=== PATIENT | male | born 1980 | race Caucasian/White ===

== ENCOUNTER 2016-11-18 14:56 | Emergency (ER) | payer SELFPAY ==
--- NOTE | 2016-11-18 15:56 | UC ---
Skin Complaint HPI - HPI Summary HPI Summary: The patient comes in today for: 1. Mass and pain on the back of the neck: Onset: 6-7 months ago--noticed suddenly when he tried to "crack" his neck. Palliative/provocative: turning the head to the right makes it worse. Quality: Ache Region: back of his neck just above the 7th cervical spinous process. Severity: 5-6/10 Time: Constant. Associated symptoms: Weakness/numbness of his arm: None. Previous treatment: Ibuprofen which has not helped. He took 400 mg every 4- 6 hours. He has taken 2 doses today. Previous evaluation: He was [place] [facility] [place] 3-4 months ago. Fevers: None. Weight loss: None. * - History of Current Complaint Chief Complaint: UCSkin Time Seen by Provider: 11/18/16 15:12 Stated Complaint: PAINFUL LUMP ON BACK OF NECK Hx Obtained From: Patient - Allergy/Home Medications Allergies/Adverse Reactions: Allergies Allergy/AdvReac Type Severity Reaction Status Date / Time Lactose AdvReac Severe Abdominal Verified 11/18/16 15:07 Pain Review of Systems Constitutional: Negative Skin: Negative Eyes: Negative ENT: Negative Respiratory: Negative Cardiovascular: Negative Gastrointestinal: Negative Genitourinary: Negative All Other Systems Reviewed And Are Negative: Yes PMH/Surg Hx/FS Hx/Imm Hx Previously Healthy: Yes Endocrine History Of: Denies: Diabetes, Thyroid Disease, Hyperthyroidism, Hypothyroidism, Dyslipidemia Cardiovascular History Of: Denies: Cardiac Disorders, Hypertension, Pacemaker/ICD, Myocardial Infarction , Congestive Heart Failure, Atrial Fibrillation, Deep Vein Thrombosis, Bleeding Disorders Respiratory History Of: Denies: COPD, Asthma, Bronchitis, Pneumonia, Pulmonary Embolism GI/ History Of: Reports: Kidney Stones Denies: Gastroesophageal Reflux, Ulcer, Gastrointestinal Bleed, Gall Bladder Disease, Diverticulitis, Renal Disease, Urosepsis Neurological History Of: Denies: TIA, CVA, Dementia, Seizures, Migraine Psychological History Of: Denies: Anxiety, Depression, Bipolar Disorder, Schizophrenia, Post Traumatic Stress Disorder Cancer History Of: Denies: Lung Cancer, Colorectal Cancer, Breast Cancer, Prostate Cancer, Cervical Cancer Other History Of: Negative For: HIV, Hepatitis B, Hepatitis C, Anticoagulant Therapy - Surgical History Surgical History: Yes Surgery Procedure, Year, and Place: right shoulder - Family History Known Family History: Positive: Hypertension, Diabetes - Social History Occupation: Employed Full-time Alcohol Use: Rare Substance Use Type: None Smoking Status (MU): Light Every Day Tobacco Smoker Type: Cigarettes Amount Used/How Often: 1/2 PPD Length of Time of Smoking/Using Tobacco: 15 years---but now only smokes 1-2 cigarettes daily Physical Exam Triage Information Reviewed: Yes Appearance: Well-Appearing, No Pain Distress - Just sitting, he did not seem to be in discomfort. However, there was discomfort with turning his chin toward the right shoulder., Thin Vital Signs: Initial Vital Signs Temp 98.2 F 11/18/16 15:04 Pulse 70 11/18/16 15:04 Resp 19 11/18/16 15:04 BP 109/75 11/18/16 15:04 Pulse Ox 100 11/18/16 15:04 Vital Signs Reviewed: Yes Eyes: Positive: Conjunctiva Clear, Discharge ENT: Positive: Hearing grossly normal. Negative: Pharyngeal erythema, Nasal congestion, Nasal drainage, TM bulging, TM dull, TM red, Tonsillar swelling, Tonsillar exudate Dental: Positive: Gross Decay/Caries @, Dental Fracture @ Neck: Positive: Supple, No Lymphadenopathy. Negative: Nontender - There was minimal tenderness to palpation of the 6th spinous process. There were no masses or enlarged lymph nodes. There was no mushiness to palpation of the spinous process., Nuchal Rigidity Respiratory: Positive: Chest non-tender, Lungs clear, No respiratory distress, No accessory muscle use. Negative: Rhonchi, Wheezing Cardiovascular: Positive: RRR, No Murmur Abdomen Description: Positive: Nontender, No Organomegaly, Soft. Negative: Distended, Guarding Musculoskeletal: Positive: Strength Intact, ROM Intact - His neck range of motion was slightly limited with rotation to the right. He was thin, but there were no fasciculations or muscular atrophy. DTR were 2+/2 x 2 for the biceps, triceps, and brachioradialis. Strength was normal and symmetrical. Neurological: Positive: Alert, Muscle Tone Normal Psychological: Positive: Age Appropriate Behavior, Consolable Skin: Negative: rashes, breakdown Diagnostics - Radiology No standard instances Xray Interpretation: No Acute Changes - Soft tissues: There are supraspinatus ligament calcification from C4 through C6, unchanged. IMPRESSION: NO ACUTE FINDINGS. NO EVIDENCE OF INSTABILITY. Course/Dx - Course Course Of Treatment: Patient told of his x-ray finding and his treatment options. He at this time only wants to go with Naproxen. 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 Discharge - Discharge Plan Condition: Stable Disposition: HOME Patient Education Materials: Neck Pain (ED) Referrals: No Primary Care Phys,NOPCP [Primary Care Provider] - 1 Week [facility] [place]Outside]
--- NOTE | 2016-11-18 16:46 | RAD ---
INDICATION: Atraumatic neck pain COMPARISON: CT cervical spine March 08, 2015 TECHNIQUE: Routine five-view imaging was performed additional flexion-extension views were acquired FINDINGS: Bones: There are no acute bony findings. There are no significant osteoarthritic findings. Craniocervical junction: The odontoid and atlantodental interval are normal. Alignment: Normal. There is no evidence of instability on flexion or extension. There is mild tilting of the head to the right Disc spaces: The disc spaces are well-maintained Soft tissues: There are supraspinatus ligament calcification from C4 through C6, unchanged. IMPRESSION: NO ACUTE FINDINGS. NO EVIDENCE OF INSTABILITY.
[2016-11-18 16:47] VITALS: BP 130/79
== END 2016-11-18 17:07 | disposition home or self-care (01) ==
LOC: UCEAST 14:56
DX: G89.29 Other chronic pain (principal); M75.80 Other shoulder lesions, unspecified shoulder; M75.30 Calcific tendinitis of unspecified shoulder; M54.2 Cervicalgia; E73.9 Lactose intolerance, unspecified; Z87.442 Personal history of urinary calculi; F17.210 Nicotine dependence, cigarettes, uncomplicated
CPT/HCPCS: 72052; 99212; G0463

== ENCOUNTER 2017-02-08 13:46 | Emergency (ER) | payer SELFPAY ==
[2017-02-08 14:39] VITALS: BP 97/66
--- NOTE | 2017-02-08 18:29 | UC ---
Zurdo Ventura Benjamin, scribed for Bong Powell MD on 02/08/17 at 1657 . Ear Complaint HPI - HPI Summary HPI Summary: 36yo male c/o pressure on his right ear that is also painful for about a week. Pt has been getting intermittent dizziness and off-balance in the last 3-4 days upcome standing up. Came to to rule out anything serious. Denies BARCENAS currently , but had headaches intermittently past week. No sinus pressure. Pt also reports neck stiffness. - History of Current Complaint Chief Complaint: UCEar Stated Complaint: EAR PAIN Time Seen by Provider: 02/08/17 16:48 Hx Obtained From: Patient Onset/Duration: Gradual Onset, Lasting Weeks - 1, Still Present Severity Initially: Mild Severity Currently: Mild Pain Scale Used: 0-10 Numeric Aggravating Factors: Nothing Alleviating Factors: Nothing - Allergies/Home Medications Allergies/Adverse Reactions: Allergies Allergy/AdvReac Type Severity Reaction Status Date / Time Lactose AdvReac Severe Abdominal Verified 11/18/16 15:07 Pain Home Medications: Home Medications DiMENhydriNATE TAB* [DraMAMine TAB*] 50 mg PO Q6H PRN 02/08/17 [History Confirmed 02/08/17] PMH/Surg Hx/FS Hx/Imm Hx Previously Healthy: No Other History Of: Negative For: HIV, Hepatitis B, Hepatitis C, Anticoagulant Therapy - Surgical History Surgical History: Yes Surgery Procedure, Year, and Place: right shoulder - Family History Known Family History: Positive: Unknown, Hypertension, Diabetes - Social History Occupation: Employed Full-time Lives: With Family Alcohol Use: None Substance Use Type: None Smoking Status (MU): Heavy Every Day Tobacco Smoker Type: Cigarettes Amount Used/How Often: 1/2 PPD Length of Time of Smoking/Using Tobacco: 15 years---but now only smokes 1-2 cigarettes daily Review of Systems Constitutional: Negative Skin: Negative Eyes: Negative ENT: Ear Ache - right Respiratory: Negative Cardiovascular: Negative Gastrointestinal: Negative Genitourinary: Negative Motor: Negative Neurovascular: Negative Musculoskeletal: Arthralgia - neck stiffness Neurological: Headache, Other - dizziness and off balance Psychological: Negative All Other Systems Reviewed And Are Negative: Yes Physical Exam Triage Information Reviewed: Yes Appearance: Well-Appearing, No Pain Distress, Well-Nourished Vital Signs: Initial Vital Signs Temp 99.5 F 02/08/17 14:36 Pulse 71 02/08/17 14:36 Resp 18 02/08/17 14:36 BP 97/66 02/08/17 14:36 Pulse Ox 100 02/08/17 14:36 Vital Signs Reviewed: Yes Eyes: Positive: Conjunctiva Clear, Other: - nystagmus ENT: Positive: Normal ENT inspection, TMs normal. Negative: Tonsillar swelling , Tonsillar exudate, Muffled/hoarse voice Neck: Positive: Supple Respiratory: Positive: Chest non-tender, Lungs clear, Normal breath sounds Cardiovascular: Positive: RRR, No Murmur Musculoskeletal: Positive: Strength Intact, ROM Intact Neurological: Positive: Alert, Muscle Tone Normal Psychological: Positive: Age Appropriate Behavior Skin: Negative: rashes Ear Complaint Course/Dx - Course Course Of Treatment: Reviewed medications list. NO NEUROLOGIC DEFICIT. POSITIVE NYSTAGMUS. NO EAR ABNORMALITY ON EXAM. DISCUSSED DX AND TREATMENT WITH THE PATIENT. RX MECLIZINE. TOLD PATIENT WILL GET REEVALUATED IF NOT IMPROVED OR WORSE. - Differential Dx/Diagnosis Provider Diagnoses: RIGHT EAR PAIN, VERTIGO. Discharge - Discharge Plan Condition: Stable Disposition: HOME Prescriptions: Meclizine HCl [Meclizine 25] 25 mg PO Q6H PRN #15 tab PRN Reason: Dizziness Patient Education Materials: Vertigo (ED), Earache (ED) Forms: *Work Release Referrals: [facility] Group] [facility] [place] [facility] REFERR[facility] [Outside] No Primary Care Phys,NOPCP [Primary Care Provider] - Additional Instructions: FOLLOW UP WITH YOUR DOCTOR. GO TO THE EMERGENCY DEPARTMENT FOR ANY WORSENING OF YOUR CONDITION OR QUESTIONS OR CONCERNS. The documentation as recorded by the Zurdo malik Benjamin accurately reflects the service I personally performed and the decisions made by me, Bong Powell MD.
== END 2017-02-08 17:18 | disposition home or self-care (01) ==
LOC: UCEAST 13:46
DX: H92.01 Otalgia, right ear (principal); R42 Dizziness and giddiness; Z91.011 Allergy to milk products; F17.210 Nicotine dependence, cigarettes, uncomplicated
CPT/HCPCS: 99212; G0463

== ENCOUNTER 2019-04-21 19:24 | Emergency (ER) | payer SELFPAY ==
[2019-04-21 19:37] VITALS: BP 130/77
--- NOTE | 2019-04-21 20:01 | UC ---
Throat Pain/Nasal Artemio HPI - HPI Summary HPI Summary: Patient is a 38yo male presenting with sore throat and nasal congestion x3 days. He notes ear pressure. Notes mild nonproductive cough. Denies SOB and wheezing. Denies n/v/d. Notes chills and fatigue. Denies fever. Denies taking any medication for symptomatic relief. Notes ill contacts and would like to be tested for strep. Admits to being a smoker and wanting to quit. Patient also adds that he has what feels like a gas bubble stuck in his stomach for months now but does not have pain with it. He was given pepcid for relief but it has not helped much. - History of Current Complaint Chief Complaint: UCGeneralIllness Stated Complaint: COLD SYMPTOMS Time Seen by Provider: 04/21/19 19:33 Hx Obtained From: Patient Onset/Duration: Gradual Onset, Lasting Days Severity: Moderate Pain Intensity: 6 Pain Scale Used: 0-10 Numeric Related History: Smoking - Allergies/Home Medications Allergies/Adverse Reactions: Allergies Allergy/AdvReac Type Severity Reaction Status Date / Time lactose Allergy Abdominal Verified 04/21/19 19:36 Pain Home Medications: Home Medications Ibuprofen TAB* [Motrin TAB* 400 MG] 400 mg PO Q6H PRN 04/21/19 [History Confirmed 04/21/19] Omeprazole CAP (NF) [Prilosec CAP* 20 MG] 20 mg PO BEDTIME 04/21/19 [History Confirmed 04/21/19] PMH/Surg Hx/FS Hx/Imm Hx Other History Of: Negative For: HIV, Hepatitis B, Hepatitis C, Anticoagulant Therapy - Surgical History Surgical History: Yes Surgery Procedure, Year, and Place: right shoulder - Family History Known Family History: Positive: Unknown, Hypertension, Diabetes, Non- Contributory - Social History Alcohol Use: None Substance Use Type: None Smoking Status (MU): Heavy Every Day Tobacco Smoker Type: eCigarettes Amount Used/How Often: 1 cartridge/3 days Length of Time of Smoking/Using Tobacco: 15 years---but now only smokes 1-2 cigarettes daily When Did the Patient Quit Smoking/Using Tobacco: , uses vapes now Review of Systems All Other Systems Reviewed And Are Negative: Yes Constitutional: Positive: Chills, Fatigue. Negative: Fever Eyes: Positive: Negative. Negative: Blurred Vision, Drainage, Eye Redness ENT: Positive: Sore Throat, Ear Ache, Sinus Congestion, Other - patient notes PND. Negative: Nasal Discharge, Sinus Pain/Tenderness Respiratory: Positive: Cough. Negative: Shortness Of Breath Cardiovascular: Positive: Negative. Negative: Palpitations, Chest Pain Gastrointestinal: Positive: Negative. Negative: Abdominal Pain, Vomiting, Diarrhea, Nausea Genitourinary: Positive: Negative Musculoskeletal: Positive: Myalgia Neurological: Negative: Headache Psychological: Positive: Negative Physical Exam Triage Information Reviewed: Yes Appearance: Well-Appearing, No Pain Distress, Well-Nourished Vital Signs: Initial Vital Signs Temp 97.7 F 04/21/19 19:30 Pulse 65 04/21/19 19:30 Resp 14 04/21/19 19:30 BP 130/77 04/21/19 19:30 Pulse Ox 100 04/21/19 19:30 Vital Signs Reviewed: Yes Eyes: Positive: Conjunctiva Clear. Negative: Discharge ENT: Positive: Hearing grossly normal, Pharyngeal erythema, Nasal congestion, TMs normal, Uvula midline. Negative: Nasal drainage, TM bulging, TM dull, TM red, Tonsillar swelling, Tonsillar exudate, Hoarse voice Neck exam: Normal Neck: Positive: Supple, Nontender, No Lymphadenopathy Respiratory Exam: Normal Respiratory: Positive: Lungs clear, Normal breath sounds, No respiratory distress Cardiovascular Exam: Normal Cardiovascular: Positive: RRR. Negative: Tachycardia Throat Pain/Nasal Course/Dx - Course Course Of Treatment: Discussed with patient his negative strep test and the likely viral etiology of upper respiratory symptoms. Patient instructed to continue to take OTC cough and cold medications for relief of cold symptoms. May take OTC analgesics as directed for pain relief. Directed to wash hands often, get plenty of rest and fluids, and return if symptoms worsen or do not resolve. Patient was also counseled on smoking cessation and given a physician referral for further evaluation by a PCP who can further aide him in smoking cessation. Patient was also instructed to address his gastric concerns with the PCP. Patient voiced understanding and agreed to treatment plan. - Differential Dx/Diagnosis Provider Diagnosis: Acute bronchitis Discharge ED - Sign-Out/Discharge Documenting (check all that apply): Patient Departure All imaging exams completed and their final reports reviewed: No Studies - Discharge Plan Condition: Stable Disposition: HOME Patient Education Materials: How to Stop Smoking (ED), Acute Bronchitis (ED) Forms: *Work Release Referrals: [facility] [place] [facility]ERR[facility] [Outside] - 1 Week [facility] [Outside] - 1 Week Additional Instructions: As discussed, your strep test was negative today and your symptoms are likely caused by a virus. You may take over the counter cough and cold medications for your cold symptoms. You may use nasal saline spray as directed for symptomatic relief. You may take ibuprofen as directed for pain relief. Get plenty of rest, fluids, and refrain from smoking. Return or follow up with your primary care doctor if your symptoms worsen or do not resolve. You may follow up with the [facility] or the Physician Referral for further evaluation and information on smoking cessation. - Billing Disposition and Condition Condition: STABLE Disposition: Home - Attestation Statements Provider Attestation: Per institutional requirements, I have reviewed the chart, however, I was not consulted specifically or made aware of this patient by the midlevel provider. I did not personally evaluate, interact with , or disposition this patient.
== END 2019-04-21 20:30 | disposition home or self-care (01) ==
LOC: UCEAST 19:24
DX: J20.9 Acute bronchitis, unspecified (principal); F17.290 Nicotine dependence, other tobacco product, uncomplicated
CPT/HCPCS: 87651; 99211; G0463

== ENCOUNTER 2019-06-09 09:31 | Emergency (ER) | payer SELFPAY ==
[2019-06-09 09:42] VITALS: BP 128/75
--- NOTE | 2019-06-09 10:14 | UC ---
Head Injury HPI - HPI Summary HPI Summary: 38-year-old male presents with complaints of headache and neck pain and stiffness after slipping on the ice this morning, falling backwards, and striking the back of his head. No loss of consciousness. States he immediately got up after the fall and was ambulatory. Reports a headache that has improved since the fall. States he is most concerned because he had a previous neck injury and his neck is sore and stiff. Denies dizziness, lightheadedness, visual disturbances, numbness, tingling, or weakness of the arms or legs, nausea, vomiting, or any other injury. - History Of Current Complaint Chief Complaint: UCHeadache Stated Complaint: HIT HEAD FOM FALLING Time Seen by Provider: 06/09/19 10:07 Hx Obtained From: Patient Pain Intensity: 7 - Allergies/Home Medications Allergies/Adverse Reactions: Allergies Allergy/AdvReac Type Severity Reaction Status Date / Time lactose Allergy Abdominal Verified 06/09/19 09:42 Pain PMH/Surg Hx/FS Hx/Imm Hx Previously Healthy: Yes - Denies significant PMH Other History Of: Negative For: HIV, Hepatitis B, Hepatitis C, Anticoagulant Therapy - Surgical History Surgical History: Yes Surgery Procedure, Year, and Place: right shoulder - Family History Known Family History: Positive: Hypertension, Diabetes - Social History Occupation: Employed Full-time Lives: With Family Alcohol Use: None Substance Use Type: None Smoking Status (MU): Heavy Every Day Tobacco Smoker Type: eCigarettes Amount Used/How Often: 1 cartridge/3 days Length of Time of Smoking/Using Tobacco: 15 years---but now only smokes 1-2 cigarettes daily When Did the Patient Quit Smoking/Using Tobacco: , uses vapes now Review of Systems All Other Systems Reviewed And Are Negative: Yes Constitutional: Positive: Negative Skin: Negative: Bruising Eyes: Negative: Blurred Vision, Diplopia, Photophobia Respiratory: Positive: Negative Cardiovascular: Positive: Negative Gastrointestinal: Negative: Vomiting, Nausea Genitourinary: Positive: Negative Musculoskeletal: Positive: Other: - See HPI Neurological: Positive: Headache. Negative: Weakness, Paresthesia, Numbness Is Patient Immunocompromised?: No Physical Exam - Summary Physical Exam Summary: GENERAL APPEARANCE: Well developed, well nourished, alert and cooperative, and appears to be in no acute distress. HEAD: Atraumatic. Normocephalic. EYES: Conjunctiva clear. No drainage. PERRL, EOM intact. Vision is grossly intact. EARS: External auditory canals and tympanic membranes clear, hearing grossly intact. NOSE: No nasal discharge. THROAT: Pharynx normal. No tonsilar inflammation, swelling, exudate, or lesions. Uvula midline. NECK: Neck supple, non-tender. Full ROM. CARDIAC: Normal S1 and S2. No S3, S4 or murmurs. Rhythm is regular. There is no peripheral edema, cyanosis or pallor. Extremities are warm and well perfused. Capillary refill is less than 2 seconds. Peripheral pulses intact. LUNGS: Clear to auscultation without rales, rhonchi, wheezing or diminished breath sounds. ABDOMEN: Positive bowel sounds. Soft, nondistended, nontender. No guarding or rebound. No masses or hepatosplenomegally. MUSKULOSKELETAL: ROM intact to all extremities. No joint erythema or tenderness. Normal muscular development. Normal gait. BACK: No spinal deformity or tenderness, decreased range of motion or muscular spasm. NEUROLOGICAL: CN II-XII intact. Strength and sensation symmetric and intact throughout. Reflexes 2+ throughout. Cerebellar testing normal. SKIN: Skin normal color, texture and turgor with no lesions or eruptions. Triage Information Reviewed: Yes Vital Signs: Initial Vital Signs Temp 99.4 F 06/09/19 09:39 Pulse 82 06/09/19 09:39 Resp 17 06/09/19 09:39 BP 128/75 06/09/19 09:39 Pulse Ox 99 06/09/19 09:39 Vital Signs Reviewed: Yes Head Injury Course/Dx - Course Course Of Treatment: 38-year-old male presents with complaints of headache and neck pain and stiffness after slipping on the ice this morning, falling backwards, and striking the back of his head. No loss of consciousness. States he immediately got up after the fall and was ambulatory. Reports a headache that has improved since the fall. States he is most concerned because he had a previous neck injury and his neck is sore and stiff. Denies dizziness, lightheadedness, visual disturbances, numbness, tingling, or weakness of the arms or legs, nausea, vomiting, or any other injury. - Differential Dx/Diagnosis Differential Diagnosis/HQI/PQRI: Cerebral Contusion, Concussion Without LOC, Intracranial Bleed, Skull Fracture Provider Diagnosis: Closed head injury without loss of consciousness, Cervical strain, acute Discharge ED - Sign-Out/Discharge Documenting (check all that apply): Patient Departure All imaging exams completed and their final reports reviewed: No Studies - Discharge Plan Condition: Stable Disposition: HOME Patient Education Materials: Head Injury (ED) Referrals: No Primary Care Phys,NOPCP [Primary Care Provider] - Additional Instructions: The X-ray performed in the clinic today showed no evidence of a fracture. Your history and exam are consistent with a closed head injury and cervical strain. Get plenty of rest especially if you are having symptoms. Take acetaminophen (Tylenol) or ibuprofen (Advil, Motrin) according directions as needed for headache or pain. Use a heating pad and to the back of her neck for 15-20 minutes at least 4 times a day to help with the pain and to relax the muscles. Follow-up at the [facility] in 3-5 days if symptoms are not improving. Call for appointment. Seek immediate medical attention in the emergency room if you develop a severe headache or neck pain, visual disturbances, dizziness or lightheadedness, he lose consciousness, have any seizure-like activity, develop numbness, tingling, or weakness of the arms or legs, persistent or projectile vomiting, or any worsening of symptoms. - Billing Disposition and Condition Condition: STABLE Disposition: Home
== END 2019-06-09 11:15 | disposition home or self-care (01) ==
LOC: UCEAST 09:31
DX: S09.90XA Unspecified injury of head, initial encounter (principal); S16.1XXA Strain of muscle, fascia and tendon at neck level, initial encounter; W00.0XXA Fall on same level due to ice and snow, initial encounter; Y92.9 Unspecified place or not applicable; Z91.011 Allergy to milk products; F17.290 Nicotine dependence, other tobacco product, uncomplicated
CPT/HCPCS: 72050; 99211; G0463